=== PATIENT | male | born 1995 | race Caucasian/White ===

== ENCOUNTER 2017-07-28 22:33 | Emergency (ER) | payer MEDICAID ==
[~2017-07-28] VITALS: Ht 175.3 cm; Wt 61.2 kg
[2017-07-28 22:51] VITALS: BP 111/67
--- NOTE | 2017-07-28 23:58 | NUR ---
PER CERTIFIED ATHLETIC TRAINER ADMITTING, PATIENT LEFT
== END 2017-07-29 | disposition left against medical advice (07) ==
LOC: ER 22:36
DX: Z53.21 Procedure and treatment not carried out due to patient leaving prior to being seen by health care provider (principal)
CPT/HCPCS: A4606; Z7610

== ENCOUNTER 2018-09-17 03:59 | Emergency (ER) | payer MEDICAID ==
[~2018-09-17] VITALS: Ht 177.8 cm; Wt 59.0 kg
[2018-09-17 04:04] VITALS: BP 138/93
== END 2018-09-17 04:24 | disposition home or self-care (01) ==
LOC: ER 03:59
DX: L03.116 Cellulitis of left lower limb (principal)
CPT/HCPCS: A4606; A6402; Z7610

== ENCOUNTER 2018-12-14 21:43 | Emergency (ER) | payer MEDICAID | END 2018-12-14 22:12 | disposition home or self-care (01) | LOC: ER 21:45 | DX: Z53.21 Procedure and treatment not carried out due to patient leaving prior to being seen by health care provider (principal) ==

== ENCOUNTER 2018-12-27 01:51 | Emergency (ER) | payer MEDICAID ==
[~2018-12-27] VITALS: Ht 177.8 cm; Wt 61.7 kg
--- NOTE | 2018-12-27 02:28 | NUR ---
Pt ambulatory to er bed 5 c/o Cough w/ generalized weakness, nausea no vomiting x few days, taking oxycodone for back pain. pt aox3 rr even and unlabored. no sob noted. nad noted. no nvd at this time. pt placed on monitor waiting for md castro. 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
--- NOTE | 2018-12-27 02:45 | NUR ---
Dr. cruz at bedside for eval.
--- NOTE | 2018-12-27 03:25 | NUR ---
pt received discharge instructions. pt verbalize understanding. pt ambulatory with steady gait.
[2018-12-27 03:27] VITALS: BP 138/97
== END 2018-12-27 03:28 | disposition home or self-care (01) ==
LOC: ER 01:57
DX: B34.9 Viral infection, unspecified (principal); G89.29 Other chronic pain
CPT/HCPCS: 99283; A4606

== ENCOUNTER 2019-01-12 01:05 | Emergency (ER) | payer MEDICAID ==
[~2019-01-12] VITALS: Ht 177.8 cm; Wt 63.5 kg
[2019-01-12 01:39] VITALS: BP 134/86
== END 2019-01-12 02:33 | disposition home or self-care (01) ==
LOC: ER 01:07
DX: R14.3 Flatulence (principal); K59.00 Constipation, unspecified
CPT/HCPCS: 74018; 99283; A4606

== ENCOUNTER 2019-01-16 02:40 | Emergency (ER) | payer MEDICAID ==
[~2019-01-16] VITALS: Ht 177.8 cm; Wt 63.2 kg
[2019-01-16 02:55] VITALS: BP 123/65
[2019-01-16] MEDS ORDERED: ONDANSETRON HCL/PF 4 MG/2 ML VIAL ONE (03:40)
[2019-01-16] MEDS ORDERED: FAMOTIDINE/PF INJ 20 MG/2 ML VIAL IV ONE (03:41)
[2019-01-16 03:51] LABS: BASOPHILS # (AUTO) 0.1 /CMM (0.0-0.2); BASOPHILS % (AUTO) 1.2 % (0.0-2.0); EOSINOPHILS % (AUTO) 1.9 % (0.0-6.0); HEMATOCRIT 45 % (39-51); HEMOGLOBIN 15.1 g/dL (13.5-17.5); LYMPHOCYTES # (AUTO) 3.9 /CMM (0.8-4.8); LYMPHOCYTES % (AUTO) 40.4 % (20.0-44.0); MEAN CORPUSCULAR HGB CONC 34 g/dl (31.0-36.0); MEAN CORPUSCULAR VOLUME 87 fL (80-96); MONOCYTES # (AUTO) 0.5 /CMM (0.1-1.30); MONOCYTES % (AUTO) 5.5 % (2.0-12.0); NEUTROPHILS # (AUTO) 4.9 /CMM (1.8-8.9); PLATELET COUNT (AUTO) 296 /CMM (150-450); WHITE BLOOD COUNT (AUTO) 9.5 K/uL (4.3-11.0)
[2019-01-16 03:59] LABS: CALCIUM, SERUM 9.2 mg/dL (8.5-10.1); CREATININE 0.7 mg/dL (0.6-1.3); POTASSIUM 4.1 mmol/L (3.5-5.1)
[2019-01-16] MEDS: IV NS 0.9% 1,000 ML BAG IV ONE (04:01)
[2019-01-16] MEDS: FAMOTIDINE/PF INJ 20 MG/2 ML VIAL IV ONE (04:01)
[2019-01-16] MEDS: ONDANSETRON HCL/PF 4 MG/2 ML VIAL IVP ONE (04:01)
[2019-01-16 04:11] LABS: ALBUMIN 4.3 g/dL (3.4-5.0); BILIRUBIN,DIRECT 0.1 mg/dL (0.0-0.2); BILIRUBIN,TOTAL 0.2 mg/dL (0.2-1.0); TOTAL PROTEIN, SERUM 7.6 g/dL (6.4-8.2)
[2019-01-16 04:17] LABS: APPEARANCE,URINE Clear (CLEAR); BILIRUBIN,URINE Negative (NEGATIVE); BLOOD, URINE Negative Ery/uL (NEGATIVE); COLOR,URINE Yellow (YELLOW); KETONES,URINE Negative (NEGATIVE); LEUKOCYTE ESTERASE ,URINE Negative (NEGATIVE); NITRITE, URINE Negative (NEGATIVE); PH,URINE 8.5 (5.0-8.0); PROTEIN,URINE Negative (NEGATIVE); UGLUCOSE Negative (NEGATIVE); UROBILINOGEN,URINE 0.2 EU/dL (0.2)
== END 2019-01-16 05:30 | disposition home or self-care (01) ==
LOC: ER 02:40
DX: R10.31 Right lower quadrant pain (principal); R00.2 Palpitations; F17.200 Nicotine dependence, unspecified, uncomplicated
CPT/HCPCS: 36415; 80048-TC; 80076-TC; 81000-TC; 83605-TC; 83690-TC; 85025-TC; 85730-TC; 86140-TC; J2405; J3490; J7030